=== PATIENT | male | born 1985 | race Caucasian/White ===

== ENCOUNTER 2022-05-07 08:31 | Emergency (ER) | payer OTHER ==
[2022-05-07 08:59] VITALS: BP 118/76; PULSE 72; TEMP 98.3; BMI 32.5
[2022-05-07 10:38] LABS: BASO % 0.6 % (0-2.0); EOS % 2.2 % (0-4.5); HEMATOCRIT 40.6 % (35.4-49); HEMOGLOBIN 13.8 GM/dL (11.7-16.9); LYMPH % 29.3 % (8-40); MCH 28.5 pg (25.7-33.7); MEAN CELL VOLUME 84.1 fl (80-96); MEAN PLT VOLUME 9.7 fl (7.5-11.1); MONO % 9.6 % (3.8-10.2); NEUT % 58.3 % (42.8-82.8); PLATELET COUNT 177 10^3/uL (134-434); RBC 4.82 M/mm3 (4.00-5.60); RDW 13.5 % (11.9-15.9); WHITE BLOOD COUNT 5.2 K/mm3 (4.0-10.0)
[2022-05-07 10:56] LABS: URINE BENZODIAZEPINES NEGATIVE (NEGATIVE)
[2022-05-07 10:57] LABS: METHADONE, UR NEGATIVE (NEGATIVE); OPIATES, URI NEGATIVE (NEGATIVE); URINE AMPHETAMINES NEGATIVE (NEGATIVE); URINE BARBITURATES NEGATIVE (NEGATIVE)
[2022-05-07 10:58] LABS: PHENCYCLIDINE,URINE NEGATIVE (NEGATIVE)
[2022-05-07 10:59] LABS: CHLORIDE 107 mmol/L (98-107); SODIUM 142 mmol/L (136-145)
[2022-05-07 11:02] LABS: ALBUMIN 3.9 g/dl (3.4-5.0); ANION GAP 4 MMOL/L (8-16); BLOOD UREA NITROGEN 12.3 mg/dL (7-18); CALCIUM 9.2 mg/dL (8.5-10.1); CO2 31 mmol/L (21-32); GLUCOSE,RANDOM 106 mg/dL (74-106); MAGNESIUM 2.2 mg/dL (1.8-2.4)
[2022-05-07 11:03] LABS: COCAINE, UR NEGATIVE (NEGATIVE)
[2022-05-07 11:05] LABS: CREATININE 0.8 mg/dL (0.55-1.3); SGOT/AST 19 U/L (15-37); SGPT/ALT 35 U/L (13-61)
[2022-05-07 11:07] LABS: TOT PROT 7.4 g/dl (6.4-8.2)
[2022-05-07 11:08] LABS: ALK PHOS 63 U/L (45-117)
== END 2022-05-07 13:12 | disposition home or self-care (01) ==
LOC: JER 08:31
DX: R00.2 Palpitations (principal); F41.9 Anxiety disorder, unspecified
CPT/HCPCS: 36415; 71046-TC-FY; 80053; 80307; 82550; 82553; 83735; 85025; 93005; 93010; 99285-25; C9803-CS; U0003; U0005

== ENCOUNTER 2022-05-18 07:12 | Emergency (ER) | payer OTHER ==
[2022-05-18 07:23] VITALS: BP 128/85; PULSE 74; TEMP 98.3; BMI 34.0
[2022-05-18 11:19] LABS: BASO % 0.5 % (0-2.0); HEMATOCRIT 41.9 % (35.4-49); HEMOGLOBIN 14.3 GM/dL (11.7-16.9); LYMPH % 34.8 % (8-40); MCH 28.9 pg (25.7-33.7); MEAN PLT VOLUME 9.7 fl (7.5-11.1); MONO % 8.7 % (3.8-10.2); PLATELET COUNT 184 10^3/uL (134-434); RBC 4.93 M/mm3 (4.00-5.60); RDW 13.4 % (11.9-15.9); WHITE BLOOD COUNT 6.4 K/mm3 (4.0-10.0)
[2022-05-18 11:34] LABS: ALBUMIN 4.2 g/dl (3.4-5.0); BLOOD UREA NITROGEN 11.2 mg/dL (7-18); CALCIUM 9.8 mg/dL (8.5-10.1)
[2022-05-18 11:38] LABS: CREATININE 0.8 mg/dL (0.55-1.3)
[2022-05-18 11:39] LABS: TOT PROT 7.5 g/dl (6.4-8.2)
== END 2022-05-18 12:20 | disposition home or self-care (01) ==
LOC: JER 07:12
DX: F41.9 Anxiety disorder, unspecified (principal)
CPT/HCPCS: 36415; 71046-TC-FY; 80053; 84484; 85025; 93005; 93010; 99285-25

== ENCOUNTER 2022-06-12 09:17 | Emergency (ER) | payer OTHER ==
[2022-06-12 09:31] VITALS: BP 124/79; PULSE 79; TEMP 98; BMI 33.3
[2022-06-12 11:53] LABS: BASO % 0.4 % (0-2.0); EOS % 1.7 % (0-4.5); HEMATOCRIT 41.4 % (35.4-49); HEMOGLOBIN 14.3 GM/dL (11.7-16.9); LYMPH % 30.3 % (8-40); MCH 29.3 pg (25.7-33.7); MCHC 34.6 g/dl (32.0-35.9); MEAN CELL VOLUME 84.7 fl (80-96); MEAN PLT VOLUME 9.2 fl (7.5-11.1); NEUT % 58.6 % (42.8-82.8); PLATELET COUNT 180 10^3/uL (134-434); RBC 4.89 M/mm3 (4.00-5.60); RDW 13.3 % (11.9-15.9); WHITE BLOOD COUNT 6.3 K/mm3 (4.0-10.0)
[2022-06-12 13:43] LABS: ALK PHOS 48 U/L (45-117); BLOOD UREA NITROGEN 8.9 mg/dL (7-18); CALCIUM 9.3 mg/dL (8.5-10.1); CHLORIDE 106 mmol/L (98-107); CO2 31 mmol/L (21-32); CREATININE 0.8 mg/dL (0.55-1.3); GLUCOSE,RANDOM 94 mg/dL (74-106); SODIUM 142 mmol/L (136-145)
[2022-06-12 13:44] LABS: ALBUMIN 3.8 g/dl (3.4-5.0); BILIRUBIN,TOTAL 1.3 mg/dL (0.2-1); SGOT/AST 17 U/L (15-37); SGPT/ALT 32 U/L (13-61); TOT PROT 7.2 g/dl (6.4-8.2)
== END 2022-06-12 14:22 | disposition home or self-care (01) ==
LOC: JERFT 09:17 → JER 09:17 → JERFT 14:22
DX: R07.9 Chest pain, unspecified (principal)
CPT/HCPCS: 0241U-QW; 36415; 71046-TC-FY; 80053; 84484; 85025; 93005; 93010; 99285-25

== ENCOUNTER 2022-06-22 06:53 | Emergency (ER) | payer OTHER ==
[2022-06-22 07:07] VITALS: BP 124/71; PULSE 68; RESP 18; BMI 33.1
[2022-06-22] MEDS ORDERED: ACETAMINOPHEN 500 MG TABLET (FP) PO ONE (07:32)
[2022-06-22 08:09] LABS: BASO % 0.5 % (0-2.0); EOS % 2.4 % (0-4.5); HEMATOCRIT 43.1 % (35.4-49); HEMOGLOBIN 14.8 GM/dL (11.7-16.9); LYMPH % 32.1 % (8-40); MCH 29.1 pg (25.7-33.7); MCHC 34.3 g/dl (32.0-35.9); MEAN CELL VOLUME 84.6 fl (80-96); MEAN PLT VOLUME 9.5 fl (7.5-11.1); MONO % 10.4 % (3.8-10.2); NEUT % 54.6 % (42.8-82.8); PLATELET COUNT 181 10^3/uL (134-434); RBC 5.09 M/mm3 (4.00-5.60); RDW 13.6 % (11.9-15.9); WHITE BLOOD COUNT 6.1 K/mm3 (4.0-10.0)
[2022-06-22 08:29] LABS: BLOOD UREA NITROGEN 13.1 mg/dL (7-18); CALCIUM 9.6 mg/dL (8.5-10.1)
[2022-06-22 08:30] LABS: ALBUMIN 3.9 g/dl (3.4-5.0); MAGNESIUM 2.2 mg/dL (1.8-2.4)
[2022-06-22 08:32] LABS: PHOSPHOROUS 3.4 mg/dL (2.5-4.9)
[2022-06-22 08:33] LABS: CREATININE 0.8 mg/dL (0.55-1.3)
[2022-06-22 08:34] LABS: TOT PROT 7.2 g/dl (6.4-8.2)
== END 2022-06-22 09:34 | disposition home or self-care (01) ==
LOC: JER 06:53
DX: R07.9 Chest pain, unspecified (principal); F41.9 Anxiety disorder, unspecified
CPT/HCPCS: 36415; 71046-TC-FY; 80053; 83735; 84100; 84439; 84443; 84484; 85025; 93005; 93010; 99285-25

== ENCOUNTER 2022-07-10 10:49 | Emergency (ER) | payer OTHER ==
[2022-07-10 11:03] VITALS: BP 122/82; PULSE 80; RESP 18; TEMP 98.5; BMI 33.1
[2022-07-10] MEDS ORDERED: ALBUTEROL SO4 0.083% IH SOL 2.5 MG/3 ML VIAL.NEB. NEB ONE ×2 (11:59→12:53)
[2022-07-10] MEDS ORDERED: SODIUM CHLORIDE 0.9% 500 ML INFUS.BAG IV ONE (11:59)
[2022-07-10 13:21] LABS: BASO % 0.5 % (0-2.0); HEMATOCRIT 41.9 % (35.4-49); HEMOGLOBIN 14.4 GM/dL (11.7-16.9); LYMPH % 29.6 % (8-40); MCH 29.4 pg (25.7-33.7); MCHC 34.5 g/dl (32.0-35.9); MEAN CELL VOLUME 85.1 fl (80-96); MEAN PLT VOLUME 9.4 fl (7.5-11.1); MONO % 8.6 % (3.8-10.2); NEUT % 59.3 % (42.8-82.8); PLATELET COUNT 190 10^3/uL (134-434); RBC 4.92 M/mm3 (4.00-5.60); RDW 13.5 % (11.9-15.9); WHITE BLOOD COUNT 6.8 K/mm3 (4.0-10.0)
[2022-07-10 13:25] LABS: VENOUS BASE EXCESS 4.1 mmol/L (-2-2); VENOUS O2 SATURATION 33.7 % (70-80); VENOUS PCO2 55.6 mmHg (38-52); VENOUS PH 7.365 (7.310-7.410)
[2022-07-10 13:43] LABS: CALCIUM 9.1 mg/dL (8.5-10.1)
[2022-07-10 13:44] LABS: ALBUMIN 3.9 g/dl (3.4-5.0)
[2022-07-10 13:47] LABS: CREATININE 0.8 mg/dL (0.55-1.3)
[2022-07-10 13:48] LABS: TOT PROT 7.4 g/dl (6.4-8.2)
[2022-07-10 13:49] LABS: BILIRUBIN,TOTAL 0.8 mg/dL (0.2-1)
== END 2022-07-10 15:33 | disposition home or self-care (01) ==
LOC: JER 10:49
PROC: 3E0F7GC Introduction of Other Therapeutic Substance into Respiratory Tract, Via Natural or Artificial Opening (ICD-10-PCS; principal; 2022-07-10)
DX: R06.02 Shortness of breath (principal)
CPT/HCPCS: 0241U-QW; 36415; 71046-TC-FY; 80053; 82803; 85025; 93005; 93010; 99284-25